=== PATIENT | female | born 1970 | race Caucasian/White ===

== ENCOUNTER 2017-02-18 14:28 | Emergency (ER) | payer OTHER ==
[~2017-02-18] VITALS: Ht 165.1 cm; Wt 70.3 kg
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
[2017-02-18] MEDS ORDERED: HYDROCHLOROTHIA25 M1 PO (16:21)
[2017-02-18] MEDS ORDERED: VESICARE5 M1 PO (16:21)
[2017-02-18] MEDS ORDERED: FISH OIL 1,2001 EACH PO (16:22)
[2017-02-18] MEDS ORDERED: MULTI-DAY VITA1 EACH PO (16:22)
[2017-02-18] MEDS ORDERED: VITAMIN C250 M3 PO (16:22)
[2017-02-18] MEDS ORDERED: VITAMIN D2000 UNI1 PO (16:23)
[2017-02-18] MEDS ORDERED: HAIR, SKIN & N1 EACH PO (16:23)
[2017-02-18 16:26] VITALS: BP 148/76
[2017-02-18] MEDS ORDERED: PREDNISONE10 M2 PO (16:42)
[2017-02-18] MEDS ORDERED: HYDROXYZINE HCL50 M1 PO (16:43)
== END 2017-02-18 16:58 ==
LOC: ERH 14:28
DX: T78.40XA Allergy, unspecified, initial encounter (principal)
CPT/HCPCS: 1263; 96374; 96375; J1200; J2930